=== PATIENT | male | born 1960 | race Caucasian/White ===

== ENCOUNTER 2024-11-11 20:15 | Emergency (ER) | payer BC, MEDICARE, OTHER ==
[2024-11-11 20:57] LABS: #Basophils 0.0 thou/uL (0.0-0.2); #Eosinophils 0.0 thou/uL (0.0-0.7); #Lymphocytes 0.3 thou/uL (1.20-3.40); #Monocytes 0.2 thou/uL (0.11-0.59); #Neutrophils 4.1 thou/uL (1.40-6.50); %Basophils 0.3 % (0.0-1.0); %Eosinophils 0.0 % (0.0-10.0); %Lymphocytes 7.2 % (21.0-51.0); %Monocytes 4.9 % (0.0-10.0); %Neutrophils 87.5 % (42.0-75.0); Hematocrit 38.9 % (42.0-52.0); Hemoglobin 13.3 g/dL (14.0-18.0); Mean Corpuscular Hemoglobin 33.2 pg (27.0-31.0); Mean Corpuscular Volume 97.6 fl (78.0-98.0); Platelet Count 152 10x3/uL (130-400); Red Blood Cell (RBC) Count 3.99 mill/uL (4.70-6.10); White Blood Cell (WBC) Count 4.7 10x3/uL (4.8-10.8)
[2024-11-11] MEDS ORDERED: Sodium Bicarb 50 MEQ/50 ML Abboject 8.4% SYRINGE ONE ×2 (21:07→23:46)
[2024-11-11 21:10] LABS: Bicarbonate (HCO3v) 13.8 mmol/L (22.0-28.0); CO2 Tension (PvCO2) 36.5 mmHg (42.0-51.0); Calcium, Ionized 1.14 mmol/L (1.15-1.33); Chloride 116 mmol/L (98-107); Hemoglobin - Calc 14.7 g/dL (14.0-18.0); Potassium 4.9 mmol/L (3.5-5.1); Sodium 144 mmol/L (138-145); T. Carbon Dioxide 14.9 mmol/L (22.0-28.0); vO2 Saturation-calc 94.7 % (60.0-85.0)
[2024-11-11 21:19] LABS: ALT (SGPT) 24 U/L (Less than 45); AST (SGOT) 41 U/L (11-34); Albumin 4.4 g/dL (3.1-4.5); Alkaline Phosphatase 128 U/L (40-110); Anion Gap 25 mmol/L (10-20); BUN (Urea Nitrogen) 38 mg/dL (8.4-25.7); Bilirubin, Total 0.6 mg/dL (0.3-1.2); Calc. Creatinine Clearance 0 mL/min (70-130); Calcium 9.2 mg/dL (7.8-10.44); Carbon Dioxide 11 mmol/L (23-31); Chloride 113 mmol/L (98-107); Globulin 3.5 g/dL (2.4-3.5); Glucose 92 mg/dL (80-115); Potassium 5.0 mmol/L (3.5-5.1); Sodium 144 mmol/L (136-145)
[2024-11-11 21:48] LABS: Glucose, Urine (Dipstick) Negative (Negative); Leukocyte Trace (Negative); Protein, Urine (Dipstick) > or equal to 300 mg/dL (Neg-Trace); Specific Gravity, Urine 1.025 (1.005-1.030)
[2024-11-11 21:55] LABS: CAUTI Indications for Culture Alt mental st,lethar; WBC/HPF 21-50 HPF (0-3)
[2024-11-11 21:56] LABS: Bacteria/HPF 3+ HPF (None Seen)
[2024-11-11 21:57] LABS: Urine Culture Reflex Yes Yes
[2024-11-11] MEDS ORDERED: cefTRIAXone (ROCEPHIN) 1 GM VIAL ONE (22:09)
[2024-11-11] MEDS ORDERED: cloNIDine 0.1 MG TAB ONE (22:45)
[2024-11-11 23:36] LABS: Bicarbonate (HCO3v) 14.1 mmol/L (22.0-28.0); CO2 Tension (PvCO2) 28.1 mmHg (42.0-51.0); Calcium, Ionized 1.07 mmol/L (1.15-1.33); Chloride 116 mmol/L (98-107); Hemoglobin - Calc 12.2 g/dL (14.0-18.0); Potassium 5.3 mmol/L (3.5-5.1); Sodium 141 mmol/L (138-145); T. Carbon Dioxide 14.9 mmol/L (22.0-28.0); vO2 Saturation-calc 83.2 % (60.0-85.0)
[2024-11-11] MEDS ORDERED: Calcium Gluc 4.6 MEQ/10 ML (100 MG/ML) ONE (23:47)
[2024-11-12 02:46] LABS: Bicarbonate (HCO3v) 21.9 mmol/L (22.0-28.0); CO2 Tension (PvCO2) 33.9 mmHg (42.0-51.0); Calcium, Ionized 1.12 mmol/L (1.15-1.33); Chloride 109 mmol/L (98-107); Hemoglobin - Calc 9.4 g/dL (14.0-18.0); Potassium 5.0 mmol/L (3.5-5.1); Sodium 139 mmol/L (138-145); T. Carbon Dioxide 23.0 mmol/L (22.0-28.0); vO2 Saturation-calc 97.5 % (60.0-85.0)
[2024-11-12 05:43] LABS: Anion Gap 15 mmol/L (10-20); BUN (Urea Nitrogen) 41 mg/dL (8.4-25.7); Calc. Creatinine Clearance 0 mL/min (70-130); Calcium 8.1 mg/dL (7.8-10.44); Carbon Dioxide 19 mmol/L (23-31); Chloride 110 mmol/L (98-107); Glucose 308 mg/dL (80-115); Potassium 5.1 mmol/L (3.5-5.1); Sodium 139 mmol/L (136-145)
== END 2024-11-12 06:58 | disposition home or self-care (01) ==
LOC: BURERS 20:15
DX: S50.811A Abrasion of right forearm, initial encounter (principal); S90.412A Abrasion, left great toe, initial encounter; S90.415A Abrasion, left lesser toe(s), initial encounter; E87.20 Acidosis, unspecified; E11.649 Type 2 diabetes mellitus with hypoglycemia without coma; N17.9 Acute kidney failure, unspecified; E87.5 Hyperkalemia; I12.9 Hypertensive chronic kidney disease with stage 1 through stage 4 chronic kidney disease, or unspecified chronic kidney disease; E11.22 Type 2 diabetes mellitus with diabetic chronic kidney disease; N18.30 Chronic kidney disease, stage 3 unspecified; E78.5 Hyperlipidemia, unspecified; K21.9 Gastro-esophageal reflux disease without esophagitis; X03.8XXA Other exposure to controlled fire, not in building or structure, initial encounter; Z86.73 Personal history of transient ischemic attack (TIA), and cerebral infarction without residual deficits; Z79.84 Long term (current) use of oral hypoglycemic drugs; Z79.899 Other long term (current) drug therapy
CPT/HCPCS: 71045; 80048; 80053; 80307; 81001; 82140; 82330; 82435 ×2; 82803; 82962; 83605; 84132 ×2; 84295 ×2; 85014 ×2; 85025; 87040; 87086; 87149 ×2; 93005; 96360; 96361; 96374; 96375; 96376; 99285; J0612; J0696; 36415; 87077